=== PATIENT | female | born 1995 | race Two or more races ===

== ENCOUNTER 2025-03-03 13:04 | Outpatient (AMB) | payer MEDICAID, SELFPAY ==
[2025-03-03 13:19] VITALS: BP 100/68; PULSE 92; RESP 17; TEMP 36.4; O2SAT 97; BMI 50.3
--- NOTE | 2025-03-03 13:19 | OBCLNT_ITS ---
Vital Signs 03/03/25 13:19 Height 1.63 m Height Method Stated Weight 132.959 kg Weight Measurement Method Standing Scale BMI 50.3 BP 100/68 Blood Pressure Source Automatic Cuff Blood Pressure Location Right Upper Arm Position Sitting Respiration 17 Pulse 92 Pulse Source Monitor Temp 97.6 F Temp Source Temporal Artery Scan Pulse Oximetry (%) 97 Oxygen Delivery Method Room Air Allergies/Home Meds Allergies & Medications Allergies sumatriptan Allergy (Verified 03/03/25 13:21) NKA* Allergy (Uncoded 03/01/16 02:18) Medication Reconciliation omeprazole 20 mg capsule,delayed release 20 mg PO QDAY ##30 12/19/16 [Rx] famotidine 10 mg tablet 10 mg PO QDAY 03/03/25 [History Confirmed 03/03/25] ondansetron HCl 4 mg tablet 4 mg PO Q6H 03/03/25 [History Confirmed 03/03/25] Intake Visit Data Collection New Patient or Established: New Patient (never been to [facility]) Reason for Visit:: OBI Seen by Clinical Staff ONLY (RN/MA): No Wildlife Policy Professional Required: No Do You Feel Safe at Home: Yes Authorities Contacted: N/A PCP or OBGYN visit in last 3 months: Yes Hx Now: Yes Are you currently on any form of Control: No Pain Present Currently: No Pain Scale Used: Garsia-Ryan/Numerical Pain scale:: 0 Smoking Status Smoking Status: Never smoker Questionnaires Covid-19 Vaccine Questionnaire Has patient been vacinated for Covid-19 Have you been vacinated for Covid-19: Yes PHQ-9 PHQ-2 Over the last 2 weeks, how often have you been bothered by any of the following problems? 1. Little interest or pleasure in doing things: not at all 2. Feeling down, depressed, or hopeless: not at all Total score: 0 PHQ-9 3. Trouble falling or staying asleep, or sleeping too much: Not at all 4. Feeling tired or having little energy: Not at all 5. Poor appetite or overeating: Not at all 6. Feeling bad about yourself - or that you are a failure or have let yourself or your family down: Not at all 7. Trouble concentrating on things, such as reading the newspaper or watching television: Not at all 8. Moving or speaking so slowly that other people could have noticed? - Or the opposite - being so fidgety or restless that you have been moving around a lot more than usual: not at all 9. Thoughts that you would be better off or of hurting yourself in some way: Not at all Total score: 0 If you checked off any problems, how difficult have these problems made it for you to do your work, take care of things at home, or get along with other people?: not difficult at all Source: Developed by Drs. Sergo Cole, Swathi Hogan, Rigo Gibbs and colleagues, with an educational donald from [employer]. Depression screen completed yes Social History Living Situation History Marital Status: Lives With: Family Housing: House Tobacco History Smoking Status: Never smoker Second Hand Smoke Exposure: No Alcohol History Alcohol Intake: Never Domestic Abuse History Do You Feel Safe at Home: Yes History of Present Illness HPI Narrative Chief Complaint Initial visit, nausea and vomiting Patient is a L2 at 14 weeks and 6 days gestation by ultrasound, presenting for initial care. She reports experiencing nausea and vomiting during this . Her last menstrual period was on November 19, with an estimated due date of August 26, 2025. She is currently taking vitamins, Pepcid, Zofran, and Tylenol to manage her symptoms. She has a history of two previous pregnancies, both resulting in deliveries. Her first section was in 2015, and her second was in 2021. She has a history of depression following previous pregnancies. The patient has a history of Rh-negative blood type. Last year, she had an abnormal pap smear and tested positive for HPV, which was treated at [facility]. Due to her planned section, a repeat pap and HPV test will be conducted after delivery. Medical History: - depression Surgical History: - section in 2021 - section in 2015 - Cholecystectomy Obstetric History: - GPAL: A0 L2 - First : delivery in 2015 - Second : delivery in 2021 - History of depression Medications: - vitamins - Pepcid - Zofran - Tylenol Social History: - Positive toxicology screen for THC in March 2020 OB Initial Visit OB Flowsheet OB Flowsheet Initial Weight: Not Recorded Date -?-?-?-?-?-?-?-?-?-?-?-?- EGA Weight BP Alb Glu CTX Pres Fundal ht FHR Mov Dilation Station Effacement Hx Notes Visit Note 03/03/25 -?-?-?-?-?-?-?-?-?-?-?-?- 14w 6d 132.959 kg 100/68 Yasmin Johnson, , presents for routine visit at 14 weeks 6 days gestation. Patient has a history of 2 prior cesarea n deliveries. Patient reports nausea and vomiting. Denies RECINOS, VC, and epigastric pain. , intrauterine, 14 weeks 6 days Assessment: Patient is at 14 weeks and 6 days gestation based on ultrasound, with estimated due date of August 26. History of 2 previous C- sections in 2015 and 2021. Rh-negative blood type. Recent labs show negative results for hepatitis B, hepatitis C, RPR, HIV, gonorrhea, and chlamydia. Patient is rubella immune. A1C was 5.0. Toxicology screen was positive for THC. Plan: - Continue vitamins - Genetic testing for Down Syndrome and gender at [facility] - High-risk ultrasound in [facility] n 20 and 24 weeks to assess placenta due to previous C-sections - Administer RhoGAM at 28 weeks and afte r delivery - Routine labs ordered Nausea and vomiting of Assessment: Patient reports nausea and v omiting during . Plan: - Continue Pepcid and Zofran as needed - Continue Tylenol as needed for associa donnell discomfort History of depression Assessment: Patient has a history of pos tpartum depression following previous pregnancies. Plan: - Monitor for recurrence of depressive s ymptoms during and period Abnormal cervical cytology with HPV Assessment: Patient had an abnormal Pap smear and positive HPV test last year, treated at [facility]. Plan: - Repeat Pap smear and HPV test after de livery due to planned Menstrual History Menstrual reliability: definite Flow: normal Menstrual regularity: regular Monthly: Yes Age at menarche: 14 On control pills at conception: No OB History : 5 Para: 2 # of Living Children: 2 Delivery History 1st : Child's name: AUGUSTUS DUARTE date: 09/[birth year] sex: female Gestational age at delivery (weeks): 40 Delivery type: weight (lbs): 2721.554 g History of depression before or after : Yes 2nd : Child's name: DEANNA DUARTE date: 03/23/22 sex: male Gestational age at delivery (weeks): 39 Delivery type: weight (lbs): 3175.147 g History of depression before or after : Yes Infection History & Risk Evaluation History of STDs: HPV HIV risk evaluation: low risk Hepatitis B risk evaluation: low risk Patient or partner has history of Genital Herpes: No Varicella/chicken pox status: unknown Genetic Screening & History Genetic Screening/Teratology Counseling - Includes patient, baby's father, or a nyone in either family with: 1. Patient's age 35 years or older as of estimated date of delivery: No 2. Thalassemia (Yi, Bermudian, Mediterranean, or Background); MCV less than 80: No 3. Neural Tube Defect (Meningomyelocele, Spina Bifida, or Anencephaly): No 4. Congenital Heart Defect: No 5. Down Syndrome: Yes 6. Curt-Sachs (Ashkenazi Confucianism, Cajun, Mongolian [place]): No 7. Martha Disease (Ashkenazi Confucianism): No 8. Familial Dysautonomia (Ashkenazi Confucianism): No 9. Sickle Cell Disease or Trait (): No 10. Hemophilia or other blood disorders: No 11. Muscular Dystrophy: No 12. Cystic Fibrosis: No 13. Alvarez's Chorea: No 14. Mental Retardation/Autism: Yes 15. Other inherited genetic or chromosomal disorder: No 16. Maternal Metabolic Disorder (EG,TYPE 1 Diabetes, PKU): No 17. Patient or baby's father had a child with defects not listed above: No 18. Recurrent loss or a stillbirth: No 19. Medications (including supplements, vitamins, herbs or otc drugs)/illicit/recreational drugs/alcohol since last menstrual period: No 20. Any other: No Infection History 1. Live with someone with TB or exposed to TB: No 2. Rash or viral illness since last menstrual period: No 3. Hepatitis B,C: No 4. History of STD: HPV Other (see comments) Source: [employer] [place] [employer] Exam General Limitations: no limitations General Appearance: alert, in no apparent distress and comfortable Head Head exam: atraumatic and normocephalic Eye Eye exam: Present normal appearance, PERRL and EOMI Neck Neck exam: Present normal inspection and full ROM Chest Chest inspection: Present normal inspection and symmetric chest wall rise; Absent tenderness Resp Respiratory exam: Present normal lung sounds bilaterally; Absent respiratory distress Card Cardiovascular exam: Present regular rate and normal rhythm Abdominal Abdominal exam: Present soft and normal bowel sounds; Absent tenderness, guarding, rebound or rigidity Neuro Neurological exam: Present alert and oriented X3 Psych Psychiatric exam: Present normal affect Office Procedures OB Clinic LOC & Office Proc's Nursing/Assessment Patient Status: Initial/New Patient OB Clinic Nursing Assessment: Medication Reconciliation, Update PMH in EMR and Vital Signs OB Clinic Coordination of Care: Complex Care and Chronic Disease 1-5, Consent,records obtained, informed consent, Education Simp Pt/Fam, Lab and Imaging orders and Staff clarify orders Special Needs: Heart tones New Patient Charge New Patient Point Assignment: [id number] New Patient Point Charge: WASHER MACHINE Level 4 (3449-0054) Assessment & Plan Diagnosis / Problem List (1) Supervision of high risk , unspecified, first trimester: Status: Acute (2) Maternal care for low transverse scar from previous delivery: Status: Acute Plan , intrauterine, 14 weeks 6 days Assessment: Patient is at 14 weeks and 6 days gestation based on ultrasound, with estimated due date of August 26. History of 2 previous C- sections in 2015 and 2021. Rh-negative blood type. Recent labs show negative results for hepatitis B, hepatitis C, RPR, HIV, gonorrhea, and chlamydia. Patient is rubella immune. A1C was 5.0. Toxicology screen was positive for THC. Plan: - Continue vitamins - Genetic testing for Down Syndrome and gender at [facility] - High-risk ultrasound in [place] between 20 and 24 weeks to assess placenta due to previous C-sections - Administer RhoGAM at 28 weeks and after delivery - Routine labs ordered Nausea and vomiting of Assessment: Patient reports nausea and vomiting during . Plan: - Continue Pepcid and Zofran as needed - Continue Tylenol as needed for associated discomfort History of depression Assessment: Patient has a history of depression following previous pregnancies. Plan: - Monitor for recurrence of depressive symptoms during and period Abnormal cervical cytology with HPV Assessment: Patient had an abnormal Pap smear and positive HPV test last year, treated at [facility]. Plan: - Repeat Pap smear and HPV test after delivery due to planned
== END 2025-03-03 14:01 | disposition home or self-care (01) ==
LOC: HODSOBC 13:04
PROVIDERS: Supervising Provider Obstetrics & Gynecology; Visit Provider Obstetrics & Gynecology
DX: O09.292 Supervision of pregnancy with other poor reproductive or obstetric history, second trimester (principal); O34.211 Maternal care for low transverse scar from previous cesarean delivery; O09.892 Supervision of other high risk pregnancies, second trimester; O21.9 Vomiting of pregnancy, unspecified; O99.322 Drug use complicating pregnancy, second trimester; F12.90 Cannabis use, unspecified, uncomplicated; Z3A.14 14 weeks gestation of pregnancy; Z67.91 Unspecified blood type, Rh negative
CPT/HCPCS: 99204; G0463

== ENCOUNTER 2025-04-02 14:44 | Outpatient (AMB) | payer MEDICAID, SELFPAY ==
[2025-04-02 15:04] VITALS: BP 101/69; PULSE 98; RESP 18; TEMP 36.6; O2SAT 98; BMI 50.3
--- NOTE | 2025-04-02 15:04 | OBCLNT_ITS ---
Vital Signs 04/02/25 15:04 Height 1.63 m Height Method Stated Weight 133.583 kg Weight Measurement Method Standing Scale BMI 50.3 BP 101/69 Blood Pressure Source Automatic Cuff Blood Pressure Location Left Upper Arm Position Sitting Respiration 18 Pulse 98 Pulse Source Monitor Temp 97.8 F Temp Source Oral Pulse Oximetry (%) 98 Oxygen Delivery Method Room Air Allergies/Home Meds Allergies & Medications Allergies sumatriptan Allergy (Verified 04/02/25 15:05) NKA* Allergy (Uncoded 04/02/25 15:05) Medication Reconciliation omeprazole 20 mg capsule,delayed release 20 mg PO QDAY ##30 12/19/16 [Rx Confirmed 04/02/25] famotidine 10 mg tablet 10 mg PO QDAY 03/03/25 [History Confirmed 04/02/25] ondansetron HCl 4 mg tablet 4 mg PO Q6H 03/03/25 [History Confirmed 04/02/25] Intake Visit Data Collection New Patient or Established: Established Patient (seen at [facility] within 3 years) Reason for Visit:: CARE Seen by Clinical Staff ONLY (RN/MA): No Atmospheric Physics Professor Required: No Do You Feel Safe at Home: Yes Authorities Contacted: N/A PCP or OBGYN visit in last 3 months: Yes Hx Now: No Are you currently on any form of Control: No Pain Present Currently: No Pain Scale Used: Garsia-Ryan/Numerical Pain scale:: 0 Smoking Status Smoking Status: Never smoker Questionnaires Covid-19 Vaccine Questionnaire Has patient been vacinated for Covid-19 Have you been vacinated for Covid-19: Yes PHQ-9 PHQ-2 Over the last 2 weeks, how often have you been bothered by any of the following problems? 1. Little interest or pleasure in doing things: not at all 2. Feeling down, depressed, or hopeless: not at all Total score: 0 PHQ-9 3. Trouble falling or staying asleep, or sleeping too much: Not at all 4. Feeling tired or having little energy: Not at all 5. Poor appetite or overeating: Not at all 6. Feeling bad about yourself - or that you are a failure or have let yourself or your family down: Not at all 7. Trouble concentrating on things, such as reading the newspaper or watching t elevision: Not at all 8. Moving or speaking so slowly that other people could have noticed? - Or the opposite - being so fidgety or restless that you have been moving around a lot more than usual: not at all 9. Thoughts that you would be better off or of hurting yourself in some way: Not at all Total score: 0 Source: Developed by Drs. Sergo Cole, Swathi Hogan, Rigo Gibbs and colleagues, with an educational donald from [employer]. Depression screen completed yes Social History Living Situation History Lives With: Family Housing: House Tobacco History Smoking Status: Never smoker Second Hand Smoke Exposure: No Alcohol History Alcohol Intake: Never Domestic Abuse History Do You Feel Safe at Home: Yes History of Present Illness HPI Narrative Yasmin Johnson, , presents for routine visit at 19 weeks and one day gestation. Patient has a history of prior delivery. Denies RECINOS, VC, and epigastric pain. - Yasmin Johnson is a 5 para 2 patient at 19 weeks and 1 day gestation presenting for a routine visit. - Patient has a history of 2 previous C-sections. - Referral sent to [facility] specialist Dr. Saavedrafor ultrasound to check placenta and rule out placenta accreta. - Patient reports a persistent lesion on her thigh. - Medication details not available at this visit. - Patient mentions rectal itching. - Patient has a positive HPV test. - No active lesions noted. - Patient had an abnormal pap smear and cervical biopsy last year performed by [facility]. Care OB Visit Log OB Flowsheet Initial Weight: Not Recorded Date -?-?-?-?-?-?-?-?-?-?-?-?- EGA Weight BP Alb Glu CTX Pres Fundal ht FHR Mov Dilation Station Effacement Hx Notes Visit Note 03/03/25 -?-?-?-?-?-?-?-?-?-?-?-?- 14w 6d 132.959 kg 100/68 Yasmin Johnson, , presents for routine visit at 14 weeks 6 days gestation. Patient has a history of 2 prior cesarea n deliveries. Patient reports nausea and vomiting. Denies RECINOS, VC, and epigastric pain. , intrauterine, 14 weeks 6 days Assessment: Patient is at 14 weeks and 6 days gestation based on ultrasound, with estimated due date of August 26. History of 2 previous C- sections in 2015 and 2021. Rh-negative blood type. Recent labs show negative results for hepatitis B, hepatitis C, RPR, HIV, gonorrhea, and chlamydia. Patient is rubella immune. A1C was 5.0. Toxicology screen was positive for THC. Plan: - Continue vitamins - Genetic testing for Down Syndrome and gender at [facility] - High-risk ultrasound in [facility] n 20 and 24 weeks to assess placenta due to previous C-sections - Administer RhoGAM at 28 weeks and afte r delivery - Routine labs ordered Nausea and vomiting of Assessment: Patient reports nausea and v omiting during . Plan: - Continue Pepcid and Zofran as needed - Continue Tylenol as needed for associa donnell discomfort History of depression Assessment: Patient has a history of pos tpartum depression following previous pregnancies. Plan: - Monitor for recurrence of depressive s ymptoms during and period Abnormal cervical cytology with HPV Assessment: Patient had an abnormal Pap smear and positive HPV test last year, treated at [facility]. Plan: - Repeat Pap smear and HPV test after de livery due to planned 04/02/25 -?-?-?-?-?-?-?-?-?-?-?-?- 19w 1d 133.583 kg 101/69 absent unknown 144 5 para 2 at 19 weeks and 1 day gestation. heart rate 144 bpm, within normal range. History of 2 previous C-sections, with potential risk of placenta accreta requiring evaluation. 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 Previous abnormal pap smear with biopsy performed by [facility] last year. Persistent lesion on thigh noted. Patient reports rectal itching. Glucose tolerance test administered for gestational diabetes screening. Plan - Glucose test for diabetes screening to be performed today - Referral to Dr. Saavedra ([facility]) in [facility] for ultrasound to check placenta and rule out placenta accreta - Follow-up appointment in 4 weeks - Request medical records from [facility] regarding previous biopsy - Send medical release form to obtain re cords - Use [id number] hydrocortisone fo r rectal itching - Bring medication for persistent thigh lesion to next appointment - Monitor positive HPV status during pre gnancy - Plan for post-delivery HPV testing and potential colposcopy biopsy UMA Calculator Estimated Delivery Date Method Current WG Current Estimate 08/26/25 Ultrasound #1 19w 6d Other Estimates 08/26/25 LMP (Uncertain) 19w 6d Notes Visit Date: 03/03/25 Last Updated by: Yaw Callahan MD Laboratory, Imaging, and Diagnostic Test Results - Date: March 31, 2020 - Hepatitis B surface antigen: Negative - Hepatitis C: Negative - RPR: Non-reactive - Rubella: Immune - Blood group: O Rh-negative - Antibody screen: Negative - HIV: Non-reactive - Gonorrhea: Negative - Chlamydia: Negative - Toxicology screen: Positive for THC - Hemoglobin A1c: 5.0 - Ultrasound (current visit): - Gestational age: 14 weeks and 6 days - Estimated due date: August 26 Exam General General Appearance: alert, in no apparent distress and healthy appearing Head Head exam: atraumatic Neck Neck exam: Present normal inspection and trachea midline Chest Chest inspection: Present normal inspection and symmetric chest wall rise External exam: Present normal external exam; Absent tenderness Neuro Neurological exam: Present oriented X3 Psych Psychiatric exam: Present normal affect and normal mood Office Procedures OB Clinic LOC & Office Proc's Nursing/Assessment Patient Status: Established Patient OB Clinic Nursing Assessment: Medication Reconciliation, Update PMH in EMR and Vital Signs OB Clinic Coordination of Care: Complex Care and Chronic Disease 1-5, Consent,records obtained, informed consent, Education Simp Pt/Fam, 1 Ins Authorization, Lab and Imaging orders, Results/Orders obtained and Staff clarify orders Special Needs: Heart tones Established Patient Charge Established Patient Point Assignment: 150 Established Patient Point Charge: EP Level 4 (120-155) Assessment & Plan Diagnosis / Problem List (1) Maternal care for low transverse scar from previous delivery: Status: Acute (2) Supervision of high risk , unspecified, first trimester: Status: Acute Plan Problem List - , 19 weeks and 1 day - History of multiple sections - Human papillomavirus (HPV) infection - Rectal pruritus - Lesion of thigh Assessment 5 para 2 at 19 weeks and 1 day gestation. heart rate 144 bpm, within normal range. History of 2 previous C-sections, with potential risk of placenta accreta requiring evaluation. 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 Previous abnormal pap smear with biopsy performed by [facility] last year. Persistent lesion on thigh noted. Patient reports rectal itching. Glucose tolerance test administered for gestational diabetes screening. Plan - Glucose test for diabetes screening to be performed today - Referral to Dr. Saavedra ([facility]) in [place] for ultrasound to check placenta and rule out placenta accreta - Follow-up appointment in 4 weeks - Request medical records from [facility] regarding previous biopsy - Send medical release form to obtain records - Use [id number] hydrocortisone for rectal itching - Bring medication for persistent thigh lesion to next appointment - Monitor positive HPV status during - Plan for post-delivery HPV testing and potential colposcopy biopsy 1. Progress Reviewed gestational age, growth, and heart rate. Planned frequent visits (every 2 weeks until 36 weeks, then weekly). 2. Instructed patient to monitor movements and report decreases immediately. 3. Testing Counseled on routine third-trimester labs per guidelines. Discussed potential need for ultrasound or monitoring based on risk factors. 4. Preeclampsia Precaution Educated on preeclampsia signs: severe headache, vision changes, right upper quadrant pain, sudden swelling. Advised urgent reporting of symptoms and discussed blood pressure monitoring if high risk. 5. Labor Precautions Reviewed labor signs: regular contractions, pelvic pressure, back pain, bleeding, or fluid leakage. Instructed to seek immediate care for these symptoms. 6. Lifestyle and Delivery Preparation Reinforced vitamins, nutrition, and safe activity. Discussed plan, pain management, and . Advised on labor preparation (e.g., hospital bag) and expectations. 7. Psychosocial Support Assessed emotional well-being and offered resources for mental health or parenting support.
== END 2025-04-02 15:41 | disposition home or self-care (01) ==
PROVIDERS: Supervising Provider Obstetrics & Gynecology; Visit Provider Obstetrics & Gynecology
DX: O09.292 Supervision of pregnancy with other poor reproductive or obstetric history, second trimester (principal); O34.211 Maternal care for low transverse scar from previous cesarean delivery; Z3A.19 19 weeks gestation of pregnancy; O09.892 Supervision of other high risk pregnancies, second trimester; O98.312 Other infections with a predominantly sexual mode of transmission complicating pregnancy, second trimester; A63.0 Anogenital (venereal) warts; O99.712 Diseases of the skin and subcutaneous tissue complicating pregnancy, second trimester; L98.9 Disorder of the skin and subcutaneous tissue, unspecified; Z13.1 Encounter for screening for diabetes mellitus
CPT/HCPCS: 99214; G0463

== ENCOUNTER 2025-05-05 14:53 | Outpatient (AMB) | payer MEDICAID, SELFPAY ==
[2025-05-05 15:14] VITALS: BP 104/70; PULSE 85; RESP 17; TEMP 36.6; O2SAT 98; BMI 50.9
--- NOTE | 2025-05-05 15:14 | OBCLNT_ITS ---
Vital Signs 05/05/25 15:14 Height 1.63 m Height Method Stated Weight 135.341 kg Weight Measurement Method Standing Scale BMI 50.9 BP 104/70 Blood Pressure Source Automatic Cuff Blood Pressure Location Right Upper Arm Position Sitting Respiration 17 Pulse 85 Pulse Source Monitor Temp 97.8 F Temp Source Temporal Artery Scan Pulse Oximetry (%) 98 Oxygen Delivery Method Room Air Allergies/Home Meds Allergies & Medications Allergies sumatriptan Allergy (Verified 07/14/25 13:31) Swelling of Lip/Tongue/Throat Medication Reconciliation vitamins no.159-iron fumarate 28 mg-folic acid 800 mcg tablet (Masonatal ) 1 tab PO DAILY 05/29/25 [History Confirmed 07/14/25] omeprazole 40 mg capsule,delayed release 40 mg PO QDAY 30 days #30 caps 07/14/25 [Rx] Intake Visit Data Collection New Patient or Established: Established Patient (seen at [facility] within 3 years) Reason for Visit:: OBC Seen by Clinical Staff ONLY (RN/MA): No 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 1. Little interest or pleasure in doing things: not at all 2. Feeling down, depressed, or hopeless: not at all Total score: 0 PHQ-9 3. Trouble falling or staying asleep, or sleeping too much: Not at all 4. Feeling tired or having little energy: Not at all 5. Poor appetite or overeating: Not at all 6. Feeling bad about yourself - or that you are a failure or have let yourself or your family down: Not at all 7. Trouble concentrating on things, such as reading the newspaper or watching television: Not at all 8. Moving or speaking so slowly that other people could have noticed? - Or the opposite - being so fidgety or restless that you have been moving around a lot more than usual: not at all 9. Thoughts that you would be better off or of hurting yourself in some way: Not at all Total score: 0 If you checked off any problems, how difficult have these problems made it for you to do your work, take care of things at home, or get along with other people?: not difficult at all Source: Developed by Drs. Sergo Cole, Swathi Hogan, Rigo Gibbs and colleagues, with an educational donald from [employer]. Depression screen completed yes Social History Living Situation History Marital Status: Single Lives With: Family Housing: House Tobacco History Smoking Status: Never smoker Second Hand Smoke Exposure: No Alcohol History Alcohol Intake: Never Domestic Abuse History Do You Feel Safe at Home: Yes Care OB Visit Log OB Flowsheet Initial Weight: Not Recorded Date -?-?-?-?-?-?-?-?-?-?-?-?- EGA Weight BP Alb Glu CTX Pres Fundal ht FHR Mov Dilation Station Effacement Hx Notes Visit Note 03/03/25 -?-?-?-?-?-?-?-?-?-?-?-?- 14w 6d 132.959 kg 100/68 Yasmin Johnson, , presents for routine visit at 14 weeks 6 days gestation. Patient has a history of 2 prior cesarea n deliveries. Patient reports nausea and vomiting. Denies RECINOS, VC, and epigastric pain. , intrauterine, 14 weeks 6 days Assessment: Patient is at 14 weeks and 6 days gestation based on ultrasound, with estimated due date of August 26. History of 2 previous C- sections in 2015 and 2021. Rh-negative blood type. Recent labs show negative results for hepatitis B, hepatitis C, RPR, HIV, gonorrhea, and chlamydia. Patient is rubella immune. A1C was 5.0. Toxicology screen was positive for THC. Plan: - Continue vitamins - Genetic testing for Down Syndrome and gender at [facility] - High-risk ultrasound in [facility] 20 and 24 weeks to assess placenta due to previous C-sections - Administer RhoGAM at 28 weeks and afte r delivery - Routine labs ordered Nausea and vomiting of Assessment: Patient reports nausea and v omiting during . Plan: - Continue Pepcid and Zofran as needed - Continue Tylenol as needed for associa donnell discomfort History of depression Assessment: Patient has a history of pos tpartum depression following previous pregnancies. Plan: - Monitor for recurrence of depressive s ymptoms during and period Abnormal cervical cytology with HPV Assessment: Patient had an abnormal Pap smear and positive HPV test last year, treated at [facility]. Plan: - Repeat Pap smear and HPV test after de livery due to planned 04/02/25 -?-?-?-?-?-?-?-?-?-?-?-?- 19w 1d 133.583 kg 101/69 absent unknown 144 5 para 2 at 19 weeks and 1 day gestation. heart rate 144 bpm, within normal range. History of 2 previous C-sections, with potential risk of placenta accreta requiring evaluation. 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 Previous abnormal pap smear with biopsy performed by [facility] last year. Persistent lesion on thigh noted. Patient reports rectal itching. Glucose tolerance test administered for gestational diabetes screening. Plan - Glucose test for diabetes screening to be performed today - Referral to Dr. Saavedra ([facility]) in [facility] for ultrasound to check placenta and rule out placenta accreta - Follow-up appointment in 4 weeks - Request medical records from [facility] regarding previous biopsy - Send medical release form to obtain re cords - Use [id number] hydrocortisone fo r rectal itching - Bring medication for persistent thigh lesion to next appointment - Monitor positive HPV status during pre gnancy - Plan for post-delivery HPV testing and potential colposcopy biopsy 05/05/25 -?-?-?-?-?-?-?-?-?-?-?-?- 23w 6d 135.341 kg 104/70 absent cephalic 145 History of previous C- section. No contractions, LOF, VB and reports goo d FM. Denies RECINOS, VC, and epigastric pain. - Schedule anatomy and placenta screening ultrasound with MONIKA Yu at [facility] (patient to call for appointment) - Rhogam shot at 28 weeks (4 weeks from current visit) - Schedule section for any week day after August 19 (39 weeks gestation), approximately one week before August 26 due date - Provide work excuse note - patient can return to work briefly after [place] break (August 03) then be placed off work - Continue aspirin for 4 more weeks - Book section date in May when scheduling opens UMA Calculator Estimated Delivery Date Method Current WG Current Estimate 08/26/25 Ultrasound #1 34w 1d Other Estimates 08/26/25 LMP (Uncertain) 34w 1d Notes Visit Date: 03/03/25 Last Updated by: Yaw Callahan MD Laboratory, Imaging, and Diagnostic Test Results - Date: March 31, 2020 - Hepatitis B surface antigen: Negative - Hepatitis C: Negative - RPR: Non-reactive - Rubella: Immune - Blood group: O Rh-negative - Antibody screen: Negative - HIV: Non-reactive - Gonorrhea: Negative - Chlamydia: Negative - Toxicology screen: Positive for THC - Hemoglobin A1c: 5.0 - Ultrasound (current visit): - Gestational age: 14 weeks and 6 days - Estimated due date: August 26 Office Procedures OBC Clinic LOC & Office Proc's Nursing/Assessment Patient Status: Established Patient OB Clinic Nursing Assessment: Medication Reconciliation, Update PMH in EMR and Vital Signs OB Clinic Coordination of Care: Complex Care and Chronic Disease 1-5, Education Complex Pt/Fam, Consent,records obtained, informed consent, Results/Orders obtained and Staff clarify orders Special Needs: Heart tones Established Patient Charge Established Patient Point Assignment: 125 Established Patient Point Charge: EP Level 4 (120-155) Assessment & Plan Diagnosis / Problem List (1) Maternal care for low transverse scar from previous delivery: Status: Acute Plan Problem List - , 23 weeks and 6 days gestation - Previous delivery - Rh-negative blood type - Intermittent nausea and vomiting Assessment 23 weeks and 6 days gestation with history of previous section presenting for routine visit. One-hour glucose tolerance test result of 107 mg/dL is normal, ruling out gestational diabetes. Patient reports intermittent nausea and vomiting related to food intake. heart rate of 168 bpm is within normal limits. Patient reports active movement with no concerning symptoms. Patient is employed at [employer] and due date is August 26 with planned delivery at 39 weeks (August 19 or later). Rhogam administration due at 28 weeks gestation. Plan - Schedule anatomy and placenta screening ultrasound with MFGustavo Yu at [facility] (patient to call for appointment) - Rhogam shot at 28 weeks (4 weeks from current visit) - Schedule section for any weekday after August 19 (39 weeks gestation), approximately one week before August 26 due date - Provide work excuse note - patient can return to work briefly after [place] break (August 03) then be placed off work - Continue aspirin for 4 more weeks - Book section date in May when scheduling opens 1. Progress Reviewed gestational age (23 weeks 6 days), growth, and heart rate (168 bpm, normal). Planned frequent visits (every 2 weeks until 36 weeks, then weekly). 2. Instructed patient to monitor movements and report decreases immediately. 3. Testing Counseled on routine third-trimester labs per guidelines. Discussed potential need for ultrasound or monitoring based on risk factors (anatomy and placenta screening ultrasound scheduled). 4. Preeclampsia Precaution Educated on preeclampsia signs: severe headache, vision changes, right upper quadrant pain, sudden swelling. Advised urgent reporting of symptoms and discussed blood pressure monitoring if high risk. 5. Labor Precautions Reviewed labor signs: regular contractions, pelvic pressure, back pain, bleeding, or fluid leakage. Instructed to seek immediate care for these symptoms. 6. Lifestyle and Delivery Preparation Reinforced vitamins, nutrition, and safe activity. Discussed plan (repeat scheduled for 39 weeks, August 19 or after), pain management, and . Advised on labor preparation (e.g., hospital bag) and expectations. 7. Psychosocial Support Assessed emotional well-being and offered resources for mental health or parenting support.
== END 2025-05-05 15:23 | disposition home or self-care (01) ==
LOC: HODSOBC 14:53
PROVIDERS: Supervising Provider Obstetrics & Gynecology; Visit Provider Obstetrics & Gynecology
DX: O09.292 Supervision of pregnancy with other poor reproductive or obstetric history, second trimester (principal); O34.211 Maternal care for low transverse scar from previous cesarean delivery; O09.892 Supervision of other high risk pregnancies, second trimester; O21.2 Late vomiting of pregnancy; Z67.41 Type O blood, Rh negative; Z3A.23 23 weeks gestation of pregnancy; Z88.8 Allergy status to other drugs, medicaments and biological substances
CPT/HCPCS: 99214; G0463

== ENCOUNTER 2025-05-29 03:31 | Observation (INO) | payer MEDICAID, SELFPAY ==
[2025-05-29] VITALS (19 sets, daily range): BP systolic 128; BP diastolic 73; PULSE 75–95; RESP 17–99; TEMP 37.1; O2SAT 93–98; BMI 51.5
[2025-05-29] MEDS: ACETAMINOPHEN 325 MG TABLET 1000 MG PO (04:53)
[2025-05-29 05:27] LABS: Collection Type, Urine Clean Catch
[2025-05-29 05:33] LABS: Bilirubin,Urine Negative (Negative); Blood,Urine Negative (Negative); Clarity,Urine Clear (Clear/Hazy); Color,Urine Lt-Yellow (Lt Yel-Yel); Glucose, Urine Negative (Negative); Ketones,Urine Negative (Negative); Leukocyte Esterase,Urine Negative (Negative); Nitrite,Urine Negative (Negative); PH,Urine 6.0 (5.0-7.0); Protein,Urine Negative (Neg - Trace); RBC,Urine < 1 /hpf (0-3); Specific Gravity,Urine 1.014 (1.001-1.035); Squamous Epithelial Cell,Urine 1 /hpf (0-5); Urobilinogen,Urine Negative mg/dL (0.0-1.0); WBC,Urine < 1 /hpf (0-5)
== END 2025-05-29 06:17 | disposition home or self-care (01) ==
PROVIDERS: Admitting Provider Obstetrics & Gynecology; Visit Provider Obstetrics & Gynecology
DX: O26.892 Other specified pregnancy related conditions, second trimester (principal); R10.30 Lower abdominal pain, unspecified; Z3A.27 27 weeks gestation of pregnancy
CPT/HCPCS: 59899; 81001; A9270

== ENCOUNTER 2025-06-11 15:21 | Outpatient (AMB) | payer MEDICAID, SELFPAY ==
--- NOTE | 2025-06-11 15:37 | OBCLNT_ITS ---
Vital Signs 06/11/25 15:38 Height 1.63 m Height Method Stated Weight 135.851 kg Weight Measurement Method Standing Scale BMI 51.1 BP 113/71 Blood Pressure Source Automatic Cuff Blood Pressure Location Left Upper Arm Position Sitting Respiration 18 Pulse 88 Pulse Source Monitor Temp 97.5 F Temp Source Temporal Artery Scan Pulse Oximetry (%) 97 Oxygen Delivery Method Room Air Allergies/Home Meds Allergies & Medications Allergies sumatriptan Allergy (Verified 07/14/25 13:31) Swelling of Lip/Tongue/Throat Medication Reconciliation vitamins no.159-iron fumarate 28 mg-folic acid 800 mcg tablet (Masonatal ) 1 tab PO DAILY 05/29/25 [History Confirmed 07/14/25] omeprazole 40 mg capsule,delayed release 40 mg PO QDAY 30 days #30 caps 07/14/25 [Rx] Immunizations Immunizations Flu Vaccine in the Last 12 Months: No Flu Vaccine Exclusion Criteria: No Exclusion Criteria Care OB Visit Log OB Flowsheet Initial Weight: Not Recorded Date -?-?-?-?-?-?-?-?-?-?-?-?- EGA Weight BP Alb Glu CTX Pres Fundal ht FHR Mov Dilation Station Effacement Hx Notes Visit Note 03/03/25 -?-?-?-?-?-?-?-?-?-?-?-?- 14w 6d 132.959 kg 100/68 Yasmin Johnson, , presents for routine visit at 14 weeks 6 days gestation. Patient has a history of 2 prior cesarea n deliveries. Patient reports nausea and vomiting. Denies RECINOS, VC, and epigastric pain. , intrauterine, 14 weeks 6 days Assessment: Patient is at 14 weeks and 6 days gestation based on ultrasound, with estimated due date of August 26. History of 2 previous C- sections in 2015 and 2021. Rh-negative blood type. Recent labs show negative results for hepatitis B, hepatitis C, RPR, HIV, gonorrhea, and chlamydia. Patient is rubella immune. A1C was 5.0. Toxicology screen was positive for THC. Plan: - Continue vitamins - Genetic testing for Down Syndrome and gender at [facility] - High-risk ultrasound in [facility] 20 and 24 weeks to assess placenta due to previous C-sections - Administer RhoGAM at 28 weeks and afte r delivery - Routine labs ordered Nausea and vomiting of Assessment: Patient reports nausea and v omiting during . Plan: - Continue Pepcid and Zofran as needed - Continue Tylenol as needed for associa donnell discomfort History of depression Assessment: Patient has a history of pos tpartum depression following previous pregnancies. Plan: - Monitor for recurrence of depressive s ymptoms during and period Abnormal cervical cytology with HPV Assessment: Patient had an abnormal Pap smear and positive HPV test last year, treated at [facility]. Plan: - Repeat Pap smear and HPV test after de livery due to planned 04/02/25 -?-?-?-?-?-?-?-?-?-?-?-?- 19w 1d 133.583 kg 101/69 absent unknown 144 5 para 2 at 19 weeks and 1 day gestation. heart rate 144 bpm, within normal range. History of 2 previous C-sections, with potential risk of placenta accreta requiring evaluation. 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 Previous abnormal pap smear with biopsy performed by [facility] last year. Persistent lesion on thigh noted. Patient reports rectal itching. Glucose tolerance test administered for gestational diabetes screening. Plan - Glucose test for diabetes screening to be performed today - Referral to Dr. Saavedra ([facility]) in [facility] for ultrasound to check placenta and rule out placenta accreta - Follow-up appointment in 4 weeks - Request medical records from [facility] regarding previous biopsy - Send medical release form to obtain re cords - Use [id number] hydrocortisone fo r rectal itching - Bring medication for persistent thigh lesion to next appointment - Monitor positive HPV status during pre gnancy - Plan for post-delivery HPV testing and potential colposcopy biopsy 05/05/25 -?-?-?-?-?-?-?-?-?-?-?-?- 23w 6d 135.341 kg 104/70 absent cephalic 145 History of previous C- section. No contractions, LOF, VB and reports goo d FM. Denies RECINOS, VC, and epigastric pain. - Schedule anatomy and placenta screening ultrasound with MONIKA Yu at [facility] (patient to call for appointment) - Rhogam shot at 28 weeks (4 weeks from current visit) - Schedule section for any week day after August 19 (39 weeks gestation), approximately one week before August 26 due date - Provide work excuse note - patient can return to work briefly after Susy break (August 03) then be placed off work - Continue aspirin for 4 more weeks - Book section date in May when scheduling opens 06/11/25 -?-?-?-?-?-?-?-?-?-?-?-?- 29w 1d 135.851 kg 113/71 absent cephalic 149 - Patient reports baby is very active, which she describes as a positive sign. 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 - Patient declines flu vaccination, stat ing she gets super sick every week but agrees to receive Tdap vaccination. - She requests to defer flu vaccination to next appointment. - Administer RhoGAM injection (patient is Rh negative at 29 weeks 1 day gestation) - Obtain routine laboratory studies: CBC and RPR for 30-week screening - Administer Tdap vaccine (patient decli karlie influenza vaccine) - Schedule section for August 21 - Provide work excuse note for maternity leave beginning August 03 - Follow up at next appointment for scheduling confirmation UMA Calculator Estimated Delivery Date Method Current WG Current Estimate 08/26/25 Ultrasound #1 34w 1d Other Estimates 08/26/25 LMP (Uncertain) 34w 1d Notes Visit Date: 03/03/25 Last Updated by: Yaw Callahan MD Laboratory, Imaging, and Diagnostic Test Results - Date: March 31, 2020 - Hepatitis B surface antigen: Negative - Hepatitis C: Negative - RPR: Non-reactive - Rubella: Immune - Blood group: O Rh-negative - Antibody screen: Negative - HIV: Non-reactive - Gonorrhea: Negative - Chlamydia: Negative - Toxicology screen: Positive for THC - Hemoglobin A1c: 5.0 - Ultrasound (current visit): - Gestational age: 14 weeks and 6 days - Estimated due date: August 26 Office Procedures OBC Clinic LOC & Office Proc's Nursing/Assessment Patient Status: Established Patient OB Clinic Nursing Assessment: Medication Reconciliation, Update PMH in EMR and Vital Signs OB Clinic Coordination of Care: Complex Care and Chronic Disease 1-5, Education Complex Pt/Fam, Consent,records obtained, informed consent, Lab and Imaging orders, Results/Orders obtained and Staff clarify orders Special Needs: Heart tones Established Patient Charge Established Patient Point Assignment: 140 Established Patient Point Charge: EP Level 4 (120-155) Injection/Vaccine Admin SQ Im Injection: Yes Office Meds Rhophylac 1,500 unit (300 mcg)/2 mL injection syringe Performing Provider: Yaw Callahan MD Performing Location: [facility] Administered by: Rocio Hinkle MA on 06/11/25 16:11 Dose Route Admin Location Dispensed Lot Number Expiration Date Pack age [facility] Program Director/Air Personality 1,500 unit IM LEFT GLUTE 2 mL [id number] 02/11/27 99401-641-32 [id number] [facility] Immunizations diphth,pertus(acell),tetanus 2.5 Lf unit-8 mcg-5 Lf/0.5mL IM syringe Performing Provider: Yaw Callahan MD Performing Location: [facility] Administered by: Rocio Hinkle MA on 06/11/25 16:22 Dose Route Admin Location Dispensed Lot Number Expiration Date Pack age [facility] [place] Program Director/Air Personality 0.5 mL IM Left Deltoid 0.5 mL [id number] 10/17/27 60080-166-52 [id number] [place] [employer] VIS Given Date VIS Provided VIS Publication Date 06/11/25 Single Vaccine 24 Eligibility Eligibility Date Funding Source [facility] Assessment & Plan Diagnosis / Problem List (1) Supervision of high risk , unspecified, first trimester: Status: Acute (2) Maternal care for low transverse scar from previous delivery: Status: Acute (3) Maternal care for anti-d [rh] antibodies, third trimester, not applicable or unspecified: Status: Acute Plan Problem List - at 29 weeks and 1 day - Rh negative blood type Assessment 29 weeks and 1 day gestation in a 4 para 0 patient who is Rh negative. heart rate is normal at 148-149 beats per minute with reported active movement indicating well-being. Patient is due for routine care including RhoGAM administration for Rh isoimmunization prevention and standard laboratory studies (CBC and RPR) at 30 weeks gestation. Planned section is scheduled for August 21. Plan - Administer RhoGAM injection (patient is Rh negative at 29 weeks 1 day gestation) - Obtain routine laboratory studies: CBC and RPR for 30-week screening - Administer Tdap vaccine (patient declined influenza vaccine) - Schedule section for August 21 - Provide work excuse note for maternity leave beginning August 03 - Follow up at next appointment for scheduling confirmation 1. Progress Reviewed gestational age at 29 weeks and 1 day, growth, and heart rate of 148-149 bpm (normal). Planned frequent visits (every 2 weeks until 36 weeks, then weekly). 2. Instructed patient to monitor movements and report decreases immediately. 3. Testing Counseled on routine third-trimester labs per guidelines including CBC and RPR at 30 weeks. Discussed potential need for ultrasound or monitoring based on risk factors. 4. Preeclampsia Precaution Educated on preeclampsia signs: severe headache, vision changes, right upper quadrant pain, sudden swelling. Advised urgent reporting of symptoms and discussed blood pressure monitoring if high risk. 5. Labor Precautions Reviewed labor signs: regular contractions, pelvic pressure, back pain, bleeding, or fluid leakage. Instructed to seek immediate care for these symptoms. 6. Lifestyle and Delivery Preparation Reinforced vitamins, nutrition, and safe activity. Discussed plan with scheduled date of August 21, pain management, and . Advised on labor preparation (e.g., hospital bag) and expectations. 7. Psychosocial Support Assessed emotional well-being and offered resources for mental health or parenting support.
[2025-06-11 15:38] VITALS: BP 113/71; PULSE 88; RESP 18; TEMP 36.4; O2SAT 97; BMI 51.1
== END 2025-06-11 16:05 | disposition home or self-care (01) ==
LOC: HODSOBC 15:21
PROVIDERS: Supervising Provider Obstetrics & Gynecology; Visit Provider Obstetrics & Gynecology
DX: O09.293 Supervision of pregnancy with other poor reproductive or obstetric history, third trimester (principal); O34.211 Maternal care for low transverse scar from previous cesarean delivery; O09.893 Supervision of other high risk pregnancies, third trimester; O26.893 Other specified pregnancy related conditions, third trimester; Z67.41 Type O blood, Rh negative; Z3A.29 29 weeks gestation of pregnancy; Z23 Encounter for immunization
CPT/HCPCS: 90471; 90715; 96372; 99214; J3490; G0463; J2791

== ENCOUNTER 2025-06-30 14:12 | Outpatient (AMB) | payer MEDICAID, SELFPAY ==
[2025-06-30 15:02] VITALS: BP 111/73; PULSE 82; RESP 18; TEMP 36.4; O2SAT 97; BMI 51.2
--- NOTE | 2025-06-30 15:02 | OBCLNT_ITS ---
Vital Signs 06/30/25 15:02 Height 1.63 m Height Method Stated Weight 136.134 kg Weight Measurement Method Standing Scale BMI 51.2 BP 111/73 Blood Pressure Source Automatic Cuff Blood Pressure Location Right Upper Arm Position Sitting Respiration 18 Pulse 82 Pulse Source Monitor Temp 97.5 F Temp Source Temporal Artery Scan Pulse Oximetry (%) 97 Oxygen Delivery Method Room Air Allergies/Home Meds Allergies & Medications Allergies sumatriptan Allergy (Verified 07/14/25 13:31) Swelling of Lip/Tongue/Throat Medication Reconciliation vitamins no.159-iron fumarate 28 mg-folic acid 800 mcg tablet (Masonatal ) 1 tab PO DAILY 05/29/25 [History Confirmed 07/14/25] omeprazole 40 mg capsule,delayed release 40 mg PO QDAY 30 days #30 caps 07/14/25 [Rx] Immunizations Immunizations Flu Vaccine in the Last 12 Months: No Flu Vaccine Exclusion Criteria: No Exclusion Criteria Care OB Visit Log OB Flowsheet Initial Weight: Not Recorded Date -?-?-?-?-?-?-?-?-?-?-?-?- EGA Weight BP Alb Glu CTX Pres Fundal ht FHR Mov Dilation Station Effacement Hx Notes Visit Note 03/03/25 -?-?-?-?-?-?-?-?-?-?-?-?- 14w 6d 132.959 kg 100/68 Yasmin Johnson, , presents for routine visit at 14 weeks 6 days gestation. Patient has a history of 2 prior cesarea n deliveries. Patient reports nausea and vomiting. Denies RECINOS, VC, and epigastric pain. , intrauterine, 14 weeks 6 days Assessment: Patient is at 14 weeks and 6 days gestation based on ultrasound, with estimated due date of August 26. History of 2 previous C- sections in 2015 and 2021. Rh-negative blood type. Recent labs show negative results for hepatitis B, hepatitis C, RPR, HIV, gonorrhea, and chlamydia. Patient is rubella immune. A1C was 5.0. Toxicology screen was positive for THC. Plan: - Continue vitamins - Genetic testing for Down Syndrome and gender at [facility] - High-risk ultrasound in [facility] 20 and 24 weeks to assess placenta due to previous C-sections - Administer RhoGAM at 28 weeks and afte r delivery - Routine labs ordered Nausea and vomiting of Assessment: Patient reports nausea and v omiting during . Plan: - Continue Pepcid and Zofran as needed - Continue Tylenol as needed for associa donnell discomfort History of depression Assessment: Patient has a history of pos tpartum depression following previous pregnancies. Plan: - Monitor for recurrence of depressive s ymptoms during and period Abnormal cervical cytology with HPV Assessment: Patient had an abnormal Pap smear and positive HPV test last year, treated at [facility]. Plan: - Repeat Pap smear and HPV test after de livery due to planned 04/02/25 -?-?-?-?-?-?-?-?-?-?-?-?- 19w 1d 133.583 kg 101/69 absent unknown 144 5 para 2 at 19 weeks and 1 day gestation. heart rate 144 bpm, within normal range. History of 2 previous C-sections, with potential risk of placenta accreta requiring evaluation. 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 Previous abnormal pap smear with biopsy performed by [facility] last year. Persistent lesion on thigh noted. Patient reports rectal itching. Glucose tolerance test administered for gestational diabetes screening. Plan - Glucose test for diabetes screening to be performed today - Referral to Dr. Saavedra ([facility]) in [facility] for ultrasound to check placenta and rule out placenta accreta - Follow-up appointment in 4 weeks - Request medical records from [facility] regarding previous biopsy - Send medical release form to obtain re cords - Use [id number] hydrocortisone fo r rectal itching - Bring medication for persistent thigh lesion to next appointment - Monitor positive HPV status during pre gnancy - Plan for post-delivery HPV testing and potential colposcopy biopsy 05/05/25 -?-?-?-?-?-?-?-?-?-?-?-?- 23w 6d 135.341 kg 104/70 absent cephalic 145 History of previous C- section. No contractions, LOF, VB and reports goo d FM. Denies RECINOS, VC, and epigastric pain. - Schedule anatomy and placenta screening ultrasound with MONIKA Yu at [facility] (patient to call for appointment) - Rhogam shot at 28 weeks (4 weeks from current visit) - Schedule section for any week day after August 19 (39 weeks gestation), approximately one week before August 26 due date - Provide work excuse note - patient can return to work briefly after [place] break (August 03) then be placed off work - Continue aspirin for 4 more weeks - Book section date in May when year scheduling opens 06/11/25 -?-?-?-?-?-?-?-?-?-?-?-?- 29w 1d 135.851 kg 113/71 absent cephalic 149 - Patient reports baby is very active, which she describes as a positive sign. 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 - Patient declines flu vaccination, stat ing she gets super sick every week but agrees to receive Tdap vaccination. - She requests to defer flu vaccination to next appointment. - Administer RhoGAM injection (patient is Rh negative at 29 weeks 1 day gestation) - Obtain routine laboratory studies: CBC and RPR for 30-week screening - Administer Tdap vaccine (patient decli karlie influenza vaccine) - Schedule section for August 21 - Provide work excuse note for maternity leave beginning August 03 - Follow up at next appointment for scheduling confirmation 06/30/25 -?-?-?-?-?-?-?-?-?-?-?-?- 31w 6d 136.134 kg 111/73 absent cephalic 145 active - She reports no contractions but experiences constant pressure, which she describes as normal positional discomfort. - She has pubic bone pain that occurs wh en walking and when getting up from lying position. - Describes sensation of baby's head s triking against the pubic bone. - Pain also occurs under her belly but ton area, which she has never experienced before. - Baby remains active with normal movement. - She received Rhogam at her last appoin tment. - Has upcoming ultrasound scheduled for July 08 to evaluate placental location relative to previous scar. - Ultrasound scheduled for July 08 to evaluate placenta position relative to previous scar - Repeat section scheduled for August 21, 2025 (timing may change based on ultrasound results) - Follow-up appointment in 2 weeks - Pre-registration at hospital recommend ed (can be done anytime before delivery date) - Patient received Rhogam at last visit 07/14/25 -?-?-?-?-?-?-?-?-?-?-?-?- 33w 6d 136.985 kg 97/61 absent cephalic 145 - She reports experiencing a lot of tightness but denies true contractions or cramping. - Patient complains of significant heart burn, noting that water and other liquids are causing heartburn symptoms. - She has been taking Pepcid, but repo rts it wears off after 4-6 hours and is no longer effective. - Describes her heartburn symptoms as severe, stating I'm dying, I don't know what to do anymore. - She reports experiencing a lot of pre ssure which she assumes is normal for her stage of . - Patient denies contractions or crampin g at this time. - She had a recent [facility] ultrasound on showing a single fetus at 33 weeks gestational age in transverse position with head to maternal right. - Patient reports feeling kicks from one side and pressure on the other, consistent with positioning. - Order CBC and RPR labs (patient lost previous lab order) - Prescribe omeprazole for heartburn man agement (sent to pharmacy) - Recommend smaller, more frequent meals to reduce reflux - Increase fluid intake for uterine tigh tness/dehydration - Return to hospital if experiencing rashard e contractions for monitoring - Schedule GBS testing at next visit - Follow up in two weeks UMA Calculator Estimated Delivery Date Method Current WG Current Estimate 08/26/25 Ultrasound #1 34w 2d Other Estimates 08/26/25 LMP (Uncertain) 34w 2d Notes Visit Date: 03/03/25 Last Updated by: Yaw Callahan MD Laboratory, Imaging, and Diagnostic Test Results - Date: March 31, 2020 - Hepatitis B surface antigen: Negative - Hepatitis C: Negative - RPR: Non-reactive - Rubella: Immune - Blood group: O Rh-negative - Antibody screen: Negative - HIV: Non-reactive - Gonorrhea: Negative - Chlamydia: Negative - Toxicology screen: Positive for THC - Hemoglobin A1c: 5.0 - Ultrasound (current visit): - Gestational age: 14 weeks and 6 days - Estimated due date: August 26 Office Procedures OBC Clinic LOC & Office Proc's Nursing/Assessment Patient Status: Established Patient OB Clinic Nursing Assessment: Medication Reconciliation, Update PMH in EMR and Vital Signs OB Clinic Coordination of Care: Complex Care and Chronic Disease 1-5, Education Complex Pt/Fam, Consent,records obtained, informed consent, Lab and Imaging orders, Results/Orders obtained and Staff clarify orders Special Needs: Heart tones Established Patient Charge Established Patient Point Assignment: 140 Established Patient Point Charge: EP Level 4 (120-155) Assessment & Plan Diagnosis / Problem List (1) Maternal care for anti-d [rh] antibodies, third trimester, not applicable or unspecified: Status: Acute (2) Maternal care for low transverse scar from previous delivery: Status: Acute (3) Supervision of high risk , unspecified, first trimester: Status: Acute Plan Assessment 31-week 6-day patient, , with scheduled repeat section. Patient reports pelvic pressure and pubic bone pain when walking and getting up from lying position, consistent with head engagement. Patient denies contractions but experiences constant pressure. Pain under umbilicus noted. Patient has upcoming ultrasound to evaluate placental location relative to previous scar, which may impact delivery timing. Plan - Ultrasound scheduled for July 08 to evaluate placenta position relative to previous scar - Repeat section scheduled for August 21, 2025 (timing may change based on ultrasound results) - Follow-up appointment in 2 weeks - Pre-registration at hospital recommended (can be done anytime before delivery date) - Patient received Rhogam at last visit 1. Progress Reviewed gestational age at 31 weeks 6 days, growth, and heart rate. Patient reports baby is active with no contractions, experiencing pelvic pressure and pubic bone pain. Planned frequent visits (every 2 weeks until 36 weeks, then weekly). 2. Instructed patient to monitor movements and report decreases immediately. 3. Testing Counseled on routine third-trimester labs per guidelines. Discussed upcoming ultrasound on July 08 to assess placental location relative to previous scar. Potential need for delivery timing adjustment based on placental position. 4. Preeclampsia Precaution Educated on preeclampsia signs: severe headache, vision changes, right upper quadrant pain, sudden swelling. Advised urgent reporting of symptoms and discussed blood pressure monitoring if high risk. 5. Labor Precautions Reviewed labor signs: regular contractions, pelvic pressure, back pain, bleeding, or fluid leakage. Instructed to seek immediate care for these symptoms. 6. Lifestyle and Delivery Preparation Reinforced vitamins, nutrition, and safe activity. Advised increased water intake for bladder-related discomfort. Discussed repeat section scheduled for August 21, 2025, pending ultrasound results. Advised on hospital pre-registration process. 7. Psychosocial Support Assessed emotional well-being and offered resources for mental health or parenting support.
== END 2025-06-30 15:15 | disposition home or self-care (01) ==
PROVIDERS: Supervising Provider Obstetrics & Gynecology; Visit Provider Obstetrics & Gynecology
DX: O09.293 Supervision of pregnancy with other poor reproductive or obstetric history, third trimester (principal); O34.211 Maternal care for low transverse scar from previous cesarean delivery; O09.893 Supervision of other high risk pregnancies, third trimester; O36.0130 Maternal care for anti-D [Rh] antibodies, third trimester, not applicable or unspecified; Z3A.31 31 weeks gestation of pregnancy; Z67.41 Type O blood, Rh negative; Z88.8 Allergy status to other drugs, medicaments and biological substances
CPT/HCPCS: 99214; G0463

== ENCOUNTER 2025-07-14 13:22 | Outpatient (AMB) | payer MEDICAID, SELFPAY ==
[2025-07-14 13:30] VITALS: BP 97/61; PULSE 107; RESP 18; TEMP 36.2; O2SAT 95; BMI 51.5
--- NOTE | 2025-07-14 13:30 | OBCLNT_ITS ---
Vital Signs 07/14/25 13:30 Height 1.63 m Height Method Stated Weight 136.985 kg Weight Measurement Method Standing Scale BMI 51.5 BP 97/61 Blood Pressure Source Automatic Cuff Blood Pressure Location Right Upper Arm Position Sitting Respiration 18 Pulse 107 H Pulse Source Monitor Temp 97.2 F Temp Source Temporal Artery Scan Pulse Oximetry (%) 95 Oxygen Delivery Method Room Air Allergies/Home Meds Allergies & Medications Allergies sumatriptan Allergy (Verified 07/14/25 13:31) Swelling of Lip/Tongue/Throat Medication Reconciliation vitamins no.159-iron fumarate 28 mg-folic acid 800 mcg tablet (Masonatal ) 1 tab PO DAILY 05/29/25 [History Confirmed 07/14/25] omeprazole 40 mg capsule,delayed release 40 mg PO QDAY 30 days #30 caps 07/14/25 [Rx] Immunizations Immunizations Flu Vaccine in the Last 12 Months: No Flu Vaccine Exclusion Criteria: No Exclusion Criteria Care OB Visit Log OB Flowsheet Initial Weight: Not Recorded Date -?-?-?-?-?-?-?-?-?-?-?-?- EGA Weight BP Alb Glu CTX Pres Fundal ht FHR Mov Dilation Station Effacement Hx Notes Visit Note 03/03/25 -?-?-?-?-?-?-?-?-?-?-?-?- 14w 6d 132.959 kg 100/68 Yasmin Johnson, , presents for routine visit at 14 weeks 6 days gestation. Patient has a history of 2 prior cesarea n deliveries. Patient reports nausea and vomiting. Denies RECINOS, VC, and epigastric pain. , intrauterine, 14 weeks 6 days Assessment: Patient is at 14 weeks and 6 days gestation based on ultrasound, with estimated due date of August 26. History of 2 previous C- sections in 2015 and 2021. Rh-negative blood type. Recent labs show negative results for hepatitis B, hepatitis C, RPR, HIV, gonorrhea, and chlamydia. Patient is rubella immune. A1C was 5.0. Toxicology screen was positive for THC. Plan: - Continue vitamins - Genetic testing for Down Syndrome and gender at [facility] - High-risk ultrasound in [facility] 20 and 24 weeks to assess placenta due to previous C-sections - Administer RhoGAM at 28 weeks and afte r delivery - Routine labs ordered Nausea and vomiting of Assessment: Patient reports nausea and v omiting during . Plan: - Continue Pepcid and Zofran as needed - Continue Tylenol as needed for associa donnell discomfort History of depression Assessment: Patient has a history of pos tpartum depression following previous pregnancies. Plan: - Monitor for recurrence of depressive s ymptoms during and period Abnormal cervical cytology with HPV Assessment: Patient had an abnormal Pap smear and positive HPV test last year, treated at [facility]. Plan: - Repeat Pap smear and HPV test after de livery due to planned 04/02/25 -?-?-?-?-?-?-?-?-?-?-?-?- 19w 1d 133.583 kg 101/69 absent unknown 144 5 para 2 at 19 weeks and 1 day gestation. heart rate 144 bpm, within normal range. History of 2 previous C-sections, with potential risk of placenta accreta requiring evaluation. 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 Previous abnormal pap smear with biopsy performed by [facility] last year. Persistent lesion on thigh noted. Patient reports rectal itching. Glucose tolerance test administered for gestational diabetes screening. Plan - Glucose test for diabetes screening to be performed today - Referral to Dr. Saavedra ([facility]) in [facility] for ultrasound to check placenta and rule out placenta accreta - Follow-up appointment in 4 weeks - Request medical records from [facility] regarding previous biopsy - Send medical release form to obtain re cords - Use [id number] hydrocortisone fo r rectal itching - Bring medication for persistent thigh lesion to next appointment - Monitor positive HPV status during pre gnancy - Plan for post-delivery HPV testing and potential colposcopy biopsy 05/05/25 -?-?-?-?-?-?-?-?-?-?-?-?- 23w 6d 135.341 kg 104/70 absent cephalic 145 History of previous C- section. No contractions, LOF, VB and reports goo d FM. Denies RECINOS, VC, and epigastric pain. - Schedule anatomy and placenta screening ultrasound with Gustavo Yu at [facility] (patient to call for appointment) - Rhogam shot at 28 weeks (4 weeks from current visit) - Schedule section for any week day after August 19 (39 weeks gestation), approximately one week before August 26 due date - Provide work excuse note - patient can return to work briefly after [place] break (August 03) then be placed off work - Continue aspirin for 4 more weeks - Book section date in May when scheduling opens 06/11/25 -?-?-?-?-?-?-?-?-?-?-?-?- 29w 1d 135.851 kg 113/71 absent cephalic 149 - Patient reports baby is very active, which she describes as a positive sign. 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 - Patient declines flu vaccination, stat ing she gets super sick every week but agrees to receive Tdap vaccination. - She requests to defer flu vaccination to next appointment. - Administer RhoGAM injection (patient is Rh negative at 29 weeks 1 day gestation) - Obtain routine laboratory studies: CBC and RPR for 30-week screening - Administer Tdap vaccine (patient decli karlie influenza vaccine) - Schedule section for August 21 - Provide work excuse note for maternity leave beginning August 03 - Follow up at next appointment for scheduling confirmation 07/14/25 -?-?-?-?-?-?-?-?-?-?-?-?- 33w 6d 136.985 kg 97/61 absent cephalic 145 - She reports experiencing a lot of tightness but denies true contractions or cramping. - Patient complains of significant heart burn, noting that water and other liquids are causing heartburn symptoms. - She has been taking Pepcid, but repo rts it wears off after 4-6 hours and is no longer effective. - Describes her heartburn symptoms as severe, stating I'm dying, I don't know what to do anymore. - She reports experiencing a lot of pre ssure which she assumes is normal for her stage of . - Patient denies contractions or crampin g at this time. - She had a recent MFM ultrasound on showing a single fetus at 33 weeks gestational age in transverse position with head to maternal right. - Patient reports feeling kicks from one side and pressure on the other, consistent with positioning. - Order CBC and RPR labs (patient lost previous lab order) - Prescribe omeprazole for heartburn man agement (sent to pharmacy) - Recommend smaller, more frequent meals to reduce reflux - Increase fluid intake for uterine tigh tness/dehydration - Return to hospital if experiencing rashard e contractions for monitoring - Schedule GBS testing at next visit - Follow up in two weeks UMA Calculator Estimated Delivery Date Method Current WG Current Estimate 08/26/25 Ultrasound #1 34w 1d Other Estimates 08/26/25 LMP (Uncertain) 34w 1d Notes Visit Date: 03/03/25 Last Updated by: Yaw Callahan MD Laboratory, Imaging, and Diagnostic Test Results - Date: March 31, 2020 - Hepatitis B surface antigen: Negative - Hepatitis C: Negative - RPR: Non-reactive - Rubella: Immune - Blood group: O Rh-negative - Antibody screen: Negative - HIV: Non-reactive - Gonorrhea: Negative - Chlamydia: Negative - Toxicology screen: Positive for THC - Hemoglobin A1c: 5.0 - Ultrasound (current visit): - Gestational age: 14 weeks and 6 days - Estimated due date: August 26 Office Procedures OBC Clinic LOC & Office Proc's Nursing/Assessment Patient Status: Established Patient OB Clinic Nursing Assessment: Medication Reconciliation, Update PMH in EMR and Vital Signs OB Clinic Coordination of Care: Complex Care and Chronic Disease 1-5, Education Complex Pt/Fam, Consent,records obtained, informed consent, Lab and Imaging orders, Results/Orders obtained and Staff clarify orders Special Needs: Heart tones Established Patient Charge Established Patient Point Assignment: 140 Established Patient Point Charge: EP Level 4 (120-155) Assessment & Plan Diagnosis / Problem List (1) Maternal care for anti-d [rh] antibodies, third trimester, not applicable or unspecified: Status: Acute (2) Maternal care for low transverse scar from previous delivery: Status: Acute Plan Problem List - Gastroesophageal reflux disease - at 33 weeks gestation - transverse lie Assessment Patient is experiencing significant gastroesophageal reflux with inadequate symptom control on current Pepcid regimen. She reports uterine tightness without true contractions, likely related to dehydration. Recent [facility] ultrasound from 07/09/2025 shows single fetus at 33+0 weeks gestation with estimated weight of 2293 grams (40th percentile), normal MACHO, posterior placenta, cervical length 4.68 cm without funneling, and transverse presentation with head to maternal right. Limited anatomy visualization was noted due to position and poor acoustic windows, though visualized structures appear normal. Patient reports pelvic pressure and movement consistent with transverse lie. Biophysical profile score was 8/8. Plan - Order CBC and RPR labs (patient lost previous lab order) - Prescribe omeprazole for heartburn management (sent to pharmacy) - Recommend smaller, more frequent meals to reduce reflux - Increase fluid intake for uterine tightness/dehydration - Return to hospital if experiencing true contractions for monitoring - Schedule GBS testing at next visit - Follow up in two weeks 1. Progress Reviewed gestational age, growth, and heart rate. Planned frequent visits (every 2 weeks until 36 weeks, then weekly). 2. Instructed patient to monitor movements and report decreases immediately. 3. Testing Counseled on routine third-trimester labs per guidelines. Discussed potential need for ultrasound or monitoring based on risk factors. 4. Preeclampsia Precaution Educated on preeclampsia signs: severe headache, vision changes, right upper quadrant pain, sudden swelling. Advised urgent reporting of symptoms and discussed blood pressure monitoring if high risk. 5. Labor Precautions Reviewed labor signs: regular contractions, pelvic pressure, back pain, bleeding, or fluid leakage. Instructed to seek immediate care for these symptoms. 6. Lifestyle and Delivery Preparation Reinforced vitamins, nutrition, and safe activity. Discussed plan, pain management, and . Advised on labor preparation (e.g., hospital bag) and expectations. 7. Psychosocial Support Assessed emotional well-being and offered resources for mental health or parenting support.
== END 2025-07-14 13:48 | disposition home or self-care (01) ==
PROVIDERS: Supervising Provider Obstetrics & Gynecology; Visit Provider Obstetrics & Gynecology
DX: O09.293 Supervision of pregnancy with other poor reproductive or obstetric history, third trimester (principal); O34.211 Maternal care for low transverse scar from previous cesarean delivery; O09.893 Supervision of other high risk pregnancies, third trimester; O32.2XX0 Maternal care for transverse and oblique lie, not applicable or unspecified; O99.613 Diseases of the digestive system complicating pregnancy, third trimester; K21.9 Gastro-esophageal reflux disease without esophagitis; Z3A.33 33 weeks gestation of pregnancy; O36.0130 Maternal care for anti-D [Rh] antibodies, third trimester, not applicable or unspecified; Z67.41 Type O blood, Rh negative; Z88.8 Allergy status to other drugs, medicaments and biological substances
CPT/HCPCS: 99214; G0463